=== PATIENT | male | born 1960 | race African-American/Black ===

== ENCOUNTER 2021-10-21 07:48 | Inpatient (IN) | payer OTHER ==
[~2021-10-21] VITALS: Ht 185.4 cm; Wt 129.3 kg
[2021-10-21] MEDS ORDERED: DEXTROSE 10% WATER 500 ML IV ONE (13:45)
[2021-10-21 15:23] LABS: CHLORIDE 99 mEq/L (98-107)
[2021-10-21 15:38] LABS: HEMATOCRIT. 31.1 % (42.0-52.0); HEMOGLOBIN. 9.6 g/dL (14.0-18.0); RED BLOOD CELL COUNT 4.02 mill/uL (4.7-6.1)
[2021-10-21 15:39] LABS: MEAN CORPUSCULAR HEMOGLOBIN 23.8 pg (28.0-32.0); MEAN CORPUSCULAR VOLUME 77.4 fL (80.0-94.0); RED CELL DISTRIBUTION WIDTH 19.5 % (11.6-14.6)
[2021-10-21 15:40] LABS: MEAN PLATELET VOLUME 9.2 fl (7.4-10.4); PLATELET 262 x1000/uL (130-400)
[2021-10-21 15:48] LABS: PLATELET ESTIMATE NORMAL
[2021-10-21] MEDS ORDERED: LEVETIRACETAM 500MG TABLET PO STA (15:54)
[2021-10-21] MEDS ORDERED: DEXTROSE 50% WATER 50ML SYRINGE IV ONE ×2 (16:30→21:30)
[2021-10-21] MEDS ORDERED: DEXTROSE 50% WATER 50ML SYRINGE IV STA (17:21)
[2021-10-21] MEDS ORDERED: OCTREOTIDE 1,000 MCG in SODIUM CHLORIDE 0.9% 100 ML IV ONE (21:30)
[2021-10-21] MEDS ORDERED: OCTREOTIDE 1,000 MCG in SODIUM CHLORIDE 0.9% 100 ML IV NR (23:00)
[2021-10-22] MEDS ORDERED: DEXTROSE 50% WATER 50ML SYRINGE IV NR (00:30)
[2021-10-22] MEDS ORDERED: DEXT 10% WATER 1,000 ML IV ONE (00:30)
[2021-10-22] MEDS ORDERED: MAGNESIUM/ALUMINUM HYDROXIDE/SIMETHICONE 30ML UDC PO PRN (02:00)
[2021-10-22] MEDS ORDERED: MORPHINE SULFATE 2 MG/ML CPJ (NOT FOR IM USE) IV PRN (02:00)
[2021-10-22] MEDS ORDERED: ACETAMINOPHEN 325MG TABLET PO PRN (02:00)
[2021-10-22] MEDS ORDERED: GUAIFENESIN 200MG/10ML SUGAR FREE UDC PO PRN (02:00)
[2021-10-22] MEDS ORDERED: ONDANSETRON HCL 4MG/2ML INJ IV PRN (02:00)
[2021-10-22] MEDS ORDERED: DOCUSATE SODIUM 100MG CAPSULE PO PRN (02:00)
[2021-10-22] MEDS ORDERED: IPRATROPIUM/ALBUTEROL 0.5-3(2.5)MG/3ML NEB HHN PRN (02:00)
[2021-10-22] MEDS ORDERED: DIPHENHYDRAMINE 50MG/ML VIAL IV PRN (02:00)
[2021-10-22] MEDS ORDERED: CLONIDINE 0.1MG TABLET PO PRN (02:00)
[2021-10-22] MEDS ORDERED: HYDRALAZINE 20MG/ML VIAL IV PRN (02:00)
[2021-10-22] MEDS: HYDROCODONE/ACETAMINOPHEN 5/325MG TABLET PO PRN (03:32)
[2021-10-22] MEDS: SODIUM CHLORIDE 0.9% INJ 3ML FLUSH IVF SCH ×3 (06:31→22:00)
[2021-10-22] MEDS: DEXT 10% WATER 1,000 ML IV SCH ×2 (08:00→17:26)
[2021-10-22] MEDS ORDERED: ENOXAPARIN 40MG/0.4ML SYR SUBCUT SCH (09:00)
[2021-10-22 16:10] LABS: HEPATITIS B SURFACE ANTIGEN NEGATIVE
[2021-10-22 17:37] VITALS: BP 140/90
[2021-10-22 17:55] VITALS: BP 125/72
[2021-10-22] MEDS ORDERED: GENTAMICIN 100MG PREMIX 50 ML IV NR (19:00)
[2021-10-22] MEDS ORDERED: VANCOMYCIN 1,750 MG in DEXT 5% WATER 500 ML IV NR (19:30)
[2021-10-22 20:00] VITALS: BP 139/89
[2021-10-22] MEDS ORDERED: ENOXAPARIN 80MG/0.8ML SYR SUBCUT NR (21:00)
[2021-10-22] MEDS: LEVETIRACETAM 500MG TABLET PO SCH (21:00)
[2021-10-22 22:00] VITALS: BP 135/91
[2021-10-22 22:02] LABS: PROTHROMBIN TIME 40.6 sec (9.6-11.0)
[2021-10-22 22:16] LABS: INR 4.2
[2021-10-23] VITALS (12 sets, daily range): BP systolic 112–155; BP diastolic 74–114
[2021-10-23] MEDS: HYDROCODONE/ACETAMINOPHEN 5/325MG TABLET PO PRN (04:50)
[2021-10-23 05:56] LABS: HEMATOCRIT. 29.8 % (42.0-52.0); HEMOGLOBIN. 9.2 g/dL (14.0-18.0); MEAN CORPUSCULAR HEMOGLOBIN 23.8 pg (28.0-32.0); MEAN CORPUSCULAR VOLUME 77.1 fL (80.0-94.0); MEAN PLATELET VOLUME 8.9 fl (7.4-10.4); PLATELET 270 x1000/uL (130-400); RED BLOOD CELL COUNT 3.86 mill/uL (4.7-6.1)
[2021-10-23] MEDS: SODIUM CHLORIDE 0.9% INJ 3ML FLUSH IVF SCH ×2 (06:00→14:00)
[2021-10-23 06:04] LABS: PROTHROMBIN TIME 41.8 sec (9.6-11.0)
[2021-10-23 06:23] LABS: CHLORIDE 96 mEq/L (98-107)
[2021-10-23 07:24] LABS: INR 4.4
[2021-10-23] MEDS: BLOOD SUGAR DIAGNOSTIC STRIP TEST SCH ×4 (07:30→20:50)
[2021-10-23] MEDS: INSULIN LISPRO 100 UNITS/ML SUBCUT SCH ×4 (08:00→20:49)
[2021-10-23] MEDS ORDERED: FOLI-43 MT (08:17)
[2021-10-23] MEDS ORDERED: LEVE500T19 PO (08:17)
[2021-10-23] MEDS ORDERED: FOLI0.8T27 PO (08:17)
[2021-10-23] MEDS ORDERED: GABA-529 PO (08:17)
[2021-10-23] MEDS ORDERED: NPH,100V SQ (08:17)
[2021-10-23] MEDS ORDERED: OMEP20CA14 PO (08:17)
[2021-10-23] MEDS ORDERED: GLIP10TA10 PO (08:17)
[2021-10-23] MEDS ORDERED: HYDR-4135 PO (08:17)
[2021-10-23] MEDS ORDERED: CHOL400D7 PO (08:17)
[2021-10-23] MEDS ORDERED: ATOR-2 PO (08:17)
[2021-10-23] MEDS ORDERED: DOCU250C69 PO (08:17)
[2021-10-23] MEDS ORDERED: METO100T16 PO (08:17)
[2021-10-23] MEDS ORDERED: WARF-53 PO (08:17)
[2021-10-23] MEDS ORDERED: LISI10TA26 PO (08:17)
[2021-10-23] MEDS ORDERED: METF-874 PO (08:17)
[2021-10-23] MEDS ORDERED: FERR325T6 MT (08:17)
[2021-10-23] MEDS ORDERED: ALBU90AE IH (08:17)
[2021-10-23] MEDS ORDERED: FURO80TA3 PO (08:17)
[2021-10-23] MEDS ORDERED: BLOOD SUGAR DIAGNOSTIC STRIP TEST SCH (08:30)
[2021-10-23] MEDS ORDERED: DEXTROSE 50% WATER 50ML SYRINGE IV PRN (08:30)
[2021-10-23] MEDS ORDERED: INSULIN LISPRO 100 UNITS/ML SUBCUT SCH (08:30)
[2021-10-23] MEDS ORDERED: LEVETIRACETAM 500MG TABLET PO SCH (09:30)
[2021-10-23] MEDS ORDERED: WARFARIN SODIUM 5MG TABLET PO SCH (09:30)
[2021-10-23] MEDS ORDERED: LISINOPRIL 10MG TABLET PO SCH (10:06)
[2021-10-23] MEDS ORDERED: FUROSEMIDE 40MG TABLET PO SCH (10:07)
[2021-10-23 10:48] LABS: PLATELET ESTIMATE NORMAL
[2021-10-23] MEDS: LEVETIRACETAM 500MG TABLET PO SCH ×2 (10:51→20:48)
[2021-10-23] MEDS: METOPROLOL TARTRATE 50MG TABLET PO SCH ×2 (10:51→20:48)
[2021-10-23] MEDS ORDERED: GLIPIZIDE 10MG TABLET PO SCH (11:00)
[2021-10-23] MEDS ORDERED: GENTAMICIN SULFATE 140 MG in SODIUM CHLORIDE 0.9% 100 ML IV SCH (12:00)
[2021-10-23] MEDS ORDERED: ENOXAPARIN 120MG/0.8ML SYR SUBCUT SCH (17:00)
[2021-10-23] MEDS ORDERED: METOPROLOL SUCCINATE 50MG ER TABLET PO SCH (17:00)
== END 2021-10-23 20:50 | disposition short-term general hospital (02) | DRG 871 ==
LOC: ER2 07:48 → 5EST 21:44 → ENRESERV 22:46 → CMPBEDREQ 10-22 11:37 → MICUSO 10-22 14:04 → 5EST 10-22 18:15
PROVIDERS: ADMIT Internal Medicine; ATTEND Internal Medicine
PROC: 5A1D70Z Performance of Urinary Filtration, Intermittent, Less than 6 Hours Per Day (ICD-10-PCS; principal; 2021-10-22)
DX: A41.9 Sepsis, unspecified organism (principal); N18.6 End stage renal disease; E87.1 Hypo-osmolality and hyponatremia; I12.0 Hypertensive chronic kidney disease with stage 5 chronic kidney disease or end stage renal disease; I48.20 Chronic atrial fibrillation, unspecified; D64.9 Anemia, unspecified; Z20.822 Contact with and (suspected) exposure to COVID-19; E11.22 Type 2 diabetes mellitus with diabetic chronic kidney disease; E11.649 Type 2 diabetes mellitus with hypoglycemia without coma; G40.909 Epilepsy, unspecified, not intractable, without status epilepticus; Z99.2 Dependence on renal dialysis; Z79.84 Long term (current) use of oral hypoglycemic drugs; Z79.01 Long term (current) use of anticoagulants; Z79.4 Long term (current) use of insulin; Z79.899 Other long term (current) drug therapy; Z82.49 Family history of ischemic heart disease and other diseases of the circulatory system
CPT/HCPCS: 36415; 71045; 80053; 82533; 82962; 83036; 84145; 84443; 84484; 85025; 86705; 86709; 86803; 87340; 87426; 93005; 99291; C9803; J0360; J1580; J1650; J2270; J2354; J2405; J3370; J7050; J7060

== ENCOUNTER 2023-03-16 05:54 | Inpatient (IN) | payer OTHER ==
[~2023-03-16] VITALS: Ht 182.9 cm; Wt 126.6 kg
[~2023-03-16 05:54] MED LIST: ALBU90AE IH; ATOR-2 PO; CHOL400D7 PO; DOCU250C69 PO; FERR325T6 MT; FOLI-43 MT; FOLI0.8T27 PO; FURO80TA3 PO; GABA-529 PO; GLIP10TA10 PO; HYDR-4135 PO; LEVE500T19 PO; LISI10TA26 PO; METF-874 PO; METO100T16 PO; NPH,100V SQ; OMEP20CA14 PO; WARF-53 PO
[2023-03-16] MEDS ORDERED: SODIUM CHLORIDE 0.9% 500 ML IV ONE (06:15)
[2023-03-16 06:33] LABS: HEMATOCRIT. 36.4 % (42.0-52.0); HEMOGLOBIN. 11.1 g/dL (14.0-18.0); MEAN CORPUSCULAR HEMOGLOBIN 26.8 pg (28.0-32.0); MEAN CORPUSCULAR HGB CONC 30.5 g/dL (31.0-37.0); MEAN CORPUSCULAR VOLUME 87.7 fL (80.0-94.0); MEAN PLATELET VOLUME 8.6 fl (7.4-10.4); PLATELET 124 x1000/uL (130-400); RED BLOOD CELL COUNT 4.15 mill/uL (4.7-6.1); RED CELL DISTRIBUTION WIDTH 16.9 % (11.6-14.6); WHITE BLOOD COUNT 14.9 x1000/uL (4.5-11.0)
[2023-03-16 06:39] LABS: DIFFERENTIAL COMMENT 1
[2023-03-16 06:43] LABS: INR 2.3; PROTHROMBIN TIME 23.2 sec (9.6-11.0)
[2023-03-16 06:48] LABS: ALANINE AMINOTRANSFERASE < 7 IU/L (10-49); ALBUMIN 3.9 g/dL (3.2-4.8); ASPARTATE AMINOTRANSFERASE 20 IU/L (<34); BILIRUBIN TOTAL 0.2 mg/dL (0.1-1.0); CALCIUM 8.3 mg/dL (8.7-10.4); CARBON DIOXIDE 20 mEq/L (21-32); CHLORIDE 99 mEq/L (98-107); GLUCOSE 285 mg/dL (70-105); POTASSIUM 4.5 mEq/L (3.5-5.1); PROTEIN TOTAL 7.7 g/dL (6.0-8.3); SODIUM 134 mEq/L (136-145); UREA NITROGEN BLOOD 42 mg/dL (9-23)
[2023-03-16 06:59] LABS: CREATININE 7.1 mg/dL (0.6-1.3)
[2023-03-16 07:01] LABS: LACTIC ACID 4.1 mmol/L (0.4-2.0)
[2023-03-16] MEDS ORDERED: PIPERACILLIN/TAZO 3.375G/50ML 50 ML IV ONE (07:15)
[2023-03-16] MEDS ORDERED: VANCOMYCIN 1G PREMIX 200 ML IV ONE (07:15)
[2023-03-16] MEDS ORDERED: SODIUM CHLORIDE 0.9% 1,000 ML IV ONE (10:00)
[2023-03-16 12:05] LABS: TOXIC VACUOLATION 1+
[2023-03-16 12:06] LABS: PLATELET ESTIMATE SLIGHTLY DECREASED
[2023-03-16] MEDS ORDERED: NITROGLYCERIN 0.4MG TABLET SL SL PRN (15:45)
[2023-03-16] MEDS ORDERED: MAGNESIUM/ALUMINUM HYDROXIDE/SIMETHICONE 30ML UDC PO PRN (15:45)
[2023-03-16] MEDS ORDERED: IPRATROPIUM/ALBUTEROL 0.5-3(2.5)MG/3ML NEB NEB PRN (15:45)
[2023-03-16] MEDS ORDERED: CLONIDINE 0.1MG TABLET PO PRN (15:45)
[2023-03-16] MEDS ORDERED: ZOLPIDEM TARTRATE 5MG TABLET PO PRN (15:45)
[2023-03-16] MEDS ORDERED: GUAIFENESIN 200MG/10ML SUGAR FREE UDC PO PRN (15:45)
[2023-03-16] MEDS ORDERED: SODIUM CHLORIDE 0.9% 1000ML BAG (SEPSIS BOLUS) IV NR (15:45)
[2023-03-16] MEDS ORDERED: ONDANSETRON HCL 4MG/2ML INJ IV PRN (15:45)
[2023-03-16 16:00] VITALS: BP 103/53; PULSE 103; RESP 20; TEMP 101
[2023-03-16 16:19] VITALS: BP 119/72; PULSE 89; RESP 18; TEMP 97.9
[2023-03-16 17:32] LABS: CHOLESTEROL 137 mg/dL (<200); HDL CHOLESTEROL 33 mg/dL (>55); IRON 43 ug/dL (65-175); LDL CHOLESTEROL 80 mg/dL (5-100); T4 FREE 1.26 ng/dL (0.89-1.76); THYROID STIMULATING HORMONE 0.71 uIU/mL (0.55-4.78); TOTAL IRON BINDING CAPACITY 344 ug/dl (250-425); TRIGLYCERIDE 105 mg/dL (0-150)
[2023-03-16] MEDS ORDERED: WARFARIN SODIUM 5MG TABLET PO SCH (18:00)
[2023-03-16] MEDS: SEVELAMER CARBONATE 800 MG TABLET PO SCH (18:56)
[2023-03-16] MEDS: VANCOMYCIN 1G PREMIX 200 ML IV NR (19:57)
[2023-03-16 20:00] VITALS: BP 128/47; PULSE 102; RESP 18; TEMP 100.9
[2023-03-16] MEDS ORDERED: PNEUMOCOCCAL 23-VAL P-SAC VAC 0.5 ML IM ONE (20:00)
[2023-03-16] MEDS: LEVETIRACETAM 250MG TABLET PO SCH (20:58)
[2023-03-16] MEDS: FAMOTIDINE 20MG TABLET PO SCH (20:58)
[2023-03-16] MEDS: ASCORBIC ACID 500 MG TABLET PO SCH (20:58)
[2023-03-16] MEDS: PIPERACILLIN/TAZOBACTAM 3.375 G in DEXTROSE 5% WATER 50 ML IV SCH (20:58)
[2023-03-16] MEDS ORDERED: PIPERACILLIN/TAZO 3.375G/50ML 50 ML IV SCH (21:00)
[2023-03-16] MEDS: ACETAMINOPHEN 325MG TABLET PO PRN (21:05)
[2023-03-16 23:04] LABS: IRON 19 ug/dL (65-175); TOTAL IRON BINDING CAPACITY 275 ug/dl (250-425); TROPONIN I HIGH SENSITIVITY 52 ng/L (3.0-53)
[2023-03-16 23:29] LABS: FERRITIN 1872 ng/mL (22-322); FOLIC ACID (FOLATE) SERUM 18.08 ng/mL (>5.38); VITAMIN B12 SERUM 389 pg/mL (211-911)
[2023-03-16] MEDS ORDERED: DEXTROSE 50% WATER 50ML SYRINGE IV PRN (23:30)
[2023-03-16 23:46] LABS: HEPATITIS A AB IGM NEGATIVE (Negative); HEPATITIS B CORE AB IGM NEGATIVE (Negative); HEPATITIS B SURFACE ANTIGEN NEGATIVE (Negative); HEPATITIS C AB NON REACTIVE (Neg) (Negative)
[2023-03-17] VITALS (15 sets, daily range): BP systolic 106–139; BP diastolic 50–83; PULSE 70–132; RESP 16–20; TEMP 96.7–98.8
[2023-03-17] MEDS: ACETAMINOPHEN 325MG TABLET PO PRN (05:08)
[2023-03-17] MEDS ORDERED: LORAZEPAM 0.5MG TABLET PO NR (05:30)
[2023-03-17] MEDS: INSULIN LISPRO 100 UNITS/ML SUBCUT SCH ×4 (06:29→21:01)
[2023-03-17] MEDS: BLOOD SUGAR DIAGNOSTIC STRIP TEST SCH ×4 (06:29→21:02)
[2023-03-17 06:50] LABS: INR 3.1; PROTHROMBIN TIME 30.6 sec (9.6-11.0)
[2023-03-17 06:54] LABS: HEMATOCRIT. 33.1 % (42.0-52.0); HEMOGLOBIN. 10.4 g/dL (14.0-18.0); MEAN CORPUSCULAR HEMOGLOBIN 27.3 pg (28.0-32.0); MEAN CORPUSCULAR HGB CONC 31.4 g/dL (31.0-37.0); MEAN PLATELET VOLUME 9.2 fl (7.4-10.4); PLATELET 92 x1000/uL (130-400); RED BLOOD CELL COUNT 3.81 mill/uL (4.7-6.1); RED CELL DISTRIBUTION WIDTH 17.7 % (11.6-14.6); WHITE BLOOD COUNT 12.1 x1000/uL (4.5-11.0)
[2023-03-17 06:57] LABS: ALANINE AMINOTRANSFERASE < 7 IU/L (10-49); ALBUMIN 3.5 g/dL (3.2-4.8); ASPARTATE AMINOTRANSFERASE 29 IU/L (<34); BILIRUBIN TOTAL 0.2 mg/dL (0.1-1.0); CARBON DIOXIDE 20 mEq/L (21-32); CHLORIDE 101 mEq/L (98-107); CREATINE KINASE 604 IU/L (46-171); GLUCOSE 90 mg/dL (70-105); PHOSPHORUS 5.4 mg/dL (2.5-4.9); POTASSIUM 4.5 mEq/L (3.5-5.1); PROTEIN TOTAL 7.1 g/dL (6.0-8.3); SODIUM 135 mEq/L (136-145); UREA NITROGEN BLOOD 49 mg/dL (9-23)
[2023-03-17 06:59] LABS: DIFFERENTIAL COMMENT 1
[2023-03-17 07:01] LABS: CREATININE 7.8 mg/dL (0.6-1.3)
[2023-03-17] MEDS: SEVELAMER CARBONATE 800 MG TABLET PO SCH ×3 (09:07→18:31)
[2023-03-17] MEDS: ASPIRIN 81MG TABLET PO SCH (09:07)
[2023-03-17] MEDS: ZINC SULFATE 220 MG ( 50 ) CAPSULE PO SCH (09:08)
[2023-03-17] MEDS: LEVETIRACETAM 250MG TABLET PO SCH ×2 (09:08→20:46)
[2023-03-17] MEDS: ASCORBIC ACID 500 MG TABLET PO SCH ×2 (09:08→20:46)
[2023-03-17] MEDS: FAMOTIDINE 20MG TABLET PO SCH (09:08)
[2023-03-17] MEDS: AMLODIPINE 5MG TABLET PO SCH (09:09)
[2023-03-17] MEDS: PIPERACILLIN/TAZOBACTAM 3.375 G in DEXTROSE 5% WATER 50 ML IV SCH ×2 (12:38→21:41)
[2023-03-17] MEDS ORDERED: HYDROCODONE/ACETAMINOPHEN 5/325MG TABLET PO PRN (14:15)
[2023-03-17] MEDS: VANCOMYCIN 1G PREMIX 200 ML IV NR ×3 (20:16→20:32)
[2023-03-17] MEDS ORDERED: NALOXONE HCL 0.4MG/ML VIAL IV PRN (20:45)
[2023-03-17] MEDS ORDERED: VANCOMYCIN 750MG PREMIX 150 ML IV SCH (21:00)
[2023-03-17] MEDS ORDERED: ATORVASTATIN CALCIUM 40MG TABLET PO SCH (21:00)
[2023-03-18] VITALS: BP 125/76; PULSE 89; RESP 20; TEMP 97.7
[2023-03-18 04:00] VITALS: BP 128/53; PULSE 78; RESP 20; TEMP 98.6
[2023-03-18 05:43] LABS: ANISOCYTOSIS 1+; PLATELET ESTIMATE DECREASED
[2023-03-18] MEDS: BLOOD SUGAR DIAGNOSTIC STRIP TEST SCH ×2 (07:10→11:32)
[2023-03-18] MEDS: INSULIN LISPRO 100 UNITS/ML SUBCUT SCH ×2 (07:40→11:49)
[2023-03-18] MEDS: SEVELAMER CARBONATE 800 MG TABLET PO SCH ×2 (07:40→11:50)
[2023-03-18 08:00] VITALS: BP 126/76; PULSE 111; RESP 20; TEMP 100.8
[2023-03-18 08:16] LABS: HEMATOCRIT. 31.5 % (42.0-52.0); HEMOGLOBIN. 10.1 g/dL (14.0-18.0); MEAN CORPUSCULAR HEMOGLOBIN 27.2 pg (28.0-32.0); MEAN CORPUSCULAR VOLUME 85.2 fL (80.0-94.0); MEAN PLATELET VOLUME 9.4 fl (7.4-10.4); PLATELET 108 x1000/uL (130-400); RED CELL DISTRIBUTION WIDTH 17.5 % (11.6-14.6); WHITE BLOOD COUNT 11.1 x1000/uL (4.5-11.0)
[2023-03-18 08:28] LABS: PROTHROMBIN TIME 30.1 sec (9.6-11.0)
[2023-03-18 08:30] LABS: DIFFERENTIAL COMMENT 1
[2023-03-18] MEDS: ASPIRIN 81MG TABLET PO SCH (08:50)
[2023-03-18] MEDS: LEVETIRACETAM 250MG TABLET PO SCH (08:50)
[2023-03-18] MEDS: AMLODIPINE 5MG TABLET PO SCH (08:50)
[2023-03-18] MEDS: ASCORBIC ACID 500 MG TABLET PO SCH (08:50)
[2023-03-18] MEDS: ZINC SULFATE 220 MG ( 50 ) CAPSULE PO SCH (09:01)
[2023-03-18 09:24] LABS: CALCIUM 8.2 mg/dL (8.7-10.4); CARBON DIOXIDE 21 mEq/L (21-32); CHLORIDE 99 mEq/L (98-107); GLUCOSE 126 mg/dL (70-105); POTASSIUM 4.4 mEq/L (3.5-5.1); SODIUM 134 mEq/L (136-145); UREA NITROGEN BLOOD 52 mg/dL (9-23)
[2023-03-18 09:29] LABS: CREATININE 7.9 mg/dL (0.6-1.3)
[2023-03-18] MEDS: PIPERACILLIN/TAZOBACTAM 3.375 G in DEXTROSE 5% WATER 50 ML IV SCH (10:55)
[2023-03-18 12:00] VITALS: BP 121/73; PULSE 109; RESP 20; TEMP 101
[2023-03-18] MEDS ORDERED: DEXTROSE 50% WATER 50ML SYRINGE IV PRN (12:00)
[2023-03-18] MEDS ORDERED: BLOOD SUGAR DIAGNOSTIC STRIP TEST SCH (12:10)
[2023-03-18] MEDS ORDERED: INSULIN LISPRO 100 UNITS/ML SUBCUT SCH (12:40)
[2023-03-18] MEDS: ACETAMINOPHEN 325MG TABLET PO PRN ×2 (15:54→16:54)
[2023-03-18 16:00] VITALS: BP 121/75; PULSE 122; RESP 18; TEMP 100.4
[2023-03-18 17:06] VITALS: BP 116/74; PULSE 94; TEMP 99.6; O2SAT 93
[2023-03-18 17:58] LABS: ANISOCYTOSIS 1+; PLATELET ESTIMATE DECREASED
[2023-03-18] MEDS ORDERED: WARFARIN SODIUM 2.5MG TABLET PO SCH (18:00)
[2023-03-19] MEDS ORDERED: FAMOTIDINE 20MG TABLET PO SCH (09:00)
== END 2023-03-18 17:40 | disposition short-term general hospital (02) | DRG 871 ==
LOC: ER 06:13 → 6EST 09:56 → EDBEDREQ 09:58 → EDBEDREQTM 09:58 → 8WST 17:16
PROVIDERS: ADMIT Internal Medicine; ATTEND Internal Medicine
PROC: 5A1D70Z Performance of Urinary Filtration, Intermittent, Less than 6 Hours Per Day (ICD-10-PCS; principal; 2023-03-17)
DX: A41.9 Sepsis, unspecified organism (principal); G93.41 Metabolic encephalopathy; N18.6 End stage renal disease; I63.9 Cerebral infarction, unspecified; E87.1 Hypo-osmolality and hyponatremia; G81.91 Hemiplegia, unspecified affecting right dominant side; I13.2 Hypertensive heart and chronic kidney disease with heart failure and with stage 5 chronic kidney disease, or end stage renal disease; I48.91 Unspecified atrial fibrillation; G40.909 Epilepsy, unspecified, not intractable, without status epilepticus; D64.9 Anemia, unspecified; E78.5 Hyperlipidemia, unspecified; I49.9 Cardiac arrhythmia, unspecified; I65.29 Occlusion and stenosis of unspecified carotid artery; I50.9 Heart failure, unspecified; E86.0 Dehydration; E11.22 Type 2 diabetes mellitus with diabetic chronic kidney disease; I07.1 Rheumatic tricuspid insufficiency; E11.65 Type 2 diabetes mellitus with hyperglycemia; D69.6 Thrombocytopenia, unspecified; I95.1 Orthostatic hypotension; Z86.73 Personal history of transient ischemic attack (TIA), and cerebral infarction without residual deficits; Z99.2 Dependence on renal dialysis; Z79.899 Other long term (current) drug therapy; I25.2 Old myocardial infarction; Z82.49 Family history of ischemic heart disease and other diseases of the circulatory system; Z83.3 Family history of diabetes mellitus
CPT/HCPCS: 36415; 70544; 70547; 70553; 71045; 76770; 80048; 80053; 80061; 80320; 82550; 82607; 82728; 82746; 82962; 83036; 83540; 83550; 83605; 83735; 83880; 84100; 84145; 84439; 84443; 84484; 85025; 86705; 86709; 87077; 87186; 87340; 90935; 93005; 93306; 93880; 93971; 97162; 97166; 97530; 99291; J1815; J2543; J3370; J7030; J7060; G0480

== ENCOUNTER 2023-03-29 14:15 | Emergency (ER) | payer OTHER ==
[~2023-03-29] VITALS: Ht 188 cm; Wt 97.0 kg
[2023-03-29] MEDS: SODIUM CHLORIDE 0.9% 1000ML BAG (SEPSIS BOLUS) IV ONE (15:28)
[2023-03-29 15:32] LABS: BASOPHILS % 0.4 % (0.0-2.0); HEMATOCRIT. 39.9 % (42.0-52.0); HEMOGLOBIN. 12.5 g/dL (14.0-18.0); LYMPHOCYTES % 7.4 % (20.0-50.0); MEAN CORPUSCULAR HEMOGLOBIN 27.2 pg (28.0-32.0); MEAN CORPUSCULAR HGB CONC 31.5 g/dL (31.0-37.0); MEAN CORPUSCULAR VOLUME 86.5 fL (80.0-94.0); MEAN PLATELET VOLUME 8.6 fl (7.4-10.4); MONOCYTES % 6.8 % (2.0-8.0); NEUTROPHILS % 82.4 % (40.0-76.0); PLATELET 207 x1000/uL (130-400); RED BLOOD CELL COUNT 4.61 mill/uL (4.7-6.1); RED CELL DISTRIBUTION WIDTH 17.3 % (11.6-14.6); WHITE BLOOD COUNT 10.8 x1000/uL (4.5-11.0)
[2023-03-29 16:04] LABS: ALANINE AMINOTRANSFERASE < 7 IU/L (10-49); ALBUMIN 4.2 g/dL (3.2-4.8); ASPARTATE AMINOTRANSFERASE 26 IU/L (<34); BILIRUBIN TOTAL 0.2 mg/dL (0.1-1.0); CALCIUM 8.6 mg/dL (8.7-10.4); CARBON DIOXIDE 18 mEq/L (21-32); CHLORIDE 96 mEq/L (98-107); GLUCOSE 95 mg/dL (70-105); PROTEIN TOTAL 8.7 g/dL (6.0-8.3); SODIUM 130 mEq/L (136-145); TROPONIN I HIGH SENSITIVITY 14 ng/L (3.0-53); UREA NITROGEN BLOOD 46 mg/dL (9-23)
[2023-03-29 16:09] LABS: CREATININE 11.3 mg/dL (0.6-1.3); POTASSIUM 6.9 mEq/L (3.5-5.1)
[2023-03-29] MEDS ORDERED: SODIUM BICARBONATE 8.4% 1 MEQ/ML 50ML SYR IV ONE (16:30)
[2023-03-29] MEDS: INSULIN REGULAR (HUMULIN R) 300UNITS/3ML VIAL IV ONE (16:30)
[2023-03-29] MEDS: SODIUM BICARBONATE 8.4% 1 MEQ/ML 50ML SYR IV NR (18:03)
[2023-03-29] MEDS: DEXTROSE 50% WATER 50ML SYRINGE IV ONE (18:03)
[2023-03-29] MEDS ORDERED: ALBUTEROL (0.083%) 2.5MG/3ML NEB HHN NR (18:30)
[2023-03-29 19:25] VITALS: PULSE 87; RESP 20; O2SAT 97
[2023-03-29] MEDS: ALBUTEROL (0.083%) 2.5MG/3ML NEB HHN ONE (19:25)
[2023-03-29 19:42] LABS: INR 2.2; PROTHROMBIN TIME 22.7 sec (9.6-11.0)
[2023-03-29 19:58] LABS: CREATININE 11.3 mg/dL (0.6-1.3)
[2023-03-29 22:28] VITALS: BP 121/77; PULSE 72; RESP 12; TEMP 98
[2023-03-29] MEDS ORDERED: IOHEXOL-300 100 ML BOTTLE ONE (23:11)
== END 2023-03-29 22:47 | disposition short-term general hospital (02) ==
LOC: ER 14:15 → EDBEDREQ 18:58 → ER 22:47
DX: E87.5 Hyperkalemia (principal); I12.9 Hypertensive chronic kidney disease with stage 1 through stage 4 chronic kidney disease, or unspecified chronic kidney disease; N18.9 Chronic kidney disease, unspecified; R53.1 Weakness
CPT/HCPCS: 80053; 80048; 82962; 83605; 85025; 85610; 86850; 86900; 86901; 87040; 84484; 36415; 84145; 71045; 74177; 93005; 94644; 96361; 96374; 96375; 99291; Q9967; J1815; J3490; Z7610 ×3; J7030